=== PATIENT | female | born 1995 | race Caucasian/White ===

== ENCOUNTER 2017-04-24 01:43 | Emergency (ER) ==
[2017-04-24 02:06] VITALS: BP 94/62; TEMP 98.2; BMI 31.1
[2017-04-24] MEDS ORDERED: CLARITIN PO ONE (02:20)
[2017-04-24] MEDS ORDERED: ZANTAC PO STA (02:20)
[2017-04-24] MEDS ORDERED: SOLU-MEDROL 125 MG IM STA (02:20)
--- NOTE | 2017-04-24 02:24 | ED.PDOC ---
General ED Provider: Dr. PRADIP PAYTON Chief Complaint: Allergic Reaction Stated Complaint: Patient is a 21 year old female who comes to the ER with rash on the chest, neck and arms that started yesterday. Does not know what caused it but it is very purritic. Took one bendrayl 6 hours ago but has not helped. Time Seen by Physician: 02:22 Mode of Arrival: Walk-In Information Source: Patient Exam Limitations: No limitations [facility] and Triage Documentation Reviewed and Agree: Yes Skin Complaint Exam - Skin Rash/Itching Complaint/Exam Onset/Duration: 1 day Symptoms Are: Still present Initial Severity: Mild Current Severity: Moderate Location: Chest, neck and arms Potential Exposures: Reports: Unknown Prior Treatment: Benadryl Aggravating: Reports: None Alleviating: Reports: None Associated Signs and Symptoms: Denies: Difficulty breathing, Fever, Chills Skin Findings: Present: Urticaria, Papules Differential Diagnoses: Contact Dermatitis, Urticaria Review of Systems - Review Of Systems Constitutional: Reports: No symptoms Eyes: Reports: No symptoms Ears, Nose, Mouth, Throat: Reports: No symptoms Respiratory: Reports: No symptoms Cardiac: Reports: No symptoms GI: Reports: No symptoms : Reports: No symptoms Musculoskeletal: Reports: No symptoms Skin: Reports: Rash Neurological: Reports: No symptoms Endocrine: Reports: No symptoms Hematologic/Lymphatic: Reports: No symptoms All Other Systems: Reviewed and Negative Past Medical History - Past Medical History Previously Healthy: Yes Endocrine: Reports: None Cardiovascular: Reports: None Respiratory: Reports: None Hematological: Reports: None Gastrointestinal: Reports: None Genitourinary: Reports: None Neuro/Psych: Reports: Anxiety, Depression Musculoskeletal: Reports: None Cancer: Reports: None Last Menstrual Period: PRESENTLY - Surgical History General Surgical History: Reports: None - Family History Family History: Reports: None - Social History Smoking Status: Current every day smoker, Heavy tobacco smoker Hx Substance Use: No Alcohol Screening: Occasionally - Immunizations Tetanus Shot up to Date: Yes Physical Exam - Physical Exam Appearance: Ill-appearing Ill-appearing: Moderate Eyes: AFSHIN, EOMI, Conjunctiva clear ENT: Ears normal, Nose normal, Oropharynx normal Neck: Supple Respiratory: Airway patent, Breath sounds clear, Breath sounds equal, Respirations nonlabored Cardiovascular: RRR, Pulses normal, No rub, No murmur GI/: Soft, Nontender, No masses, Bowel sounds normal, No Organomegaly Musculoskeletal: Normal strength, ROM intact, No edema, No calf tenderness Skin: Warm, Dry, Normal color Neurological: Sensation intact, Motor intact, Reflexes intact, Cranial nerves intact, Alert, Oriented Psychiatric: Affect appropriate, Mood appropriate Critical Care Note - Critical Care Note Total Time (mins): 0 Course - Course Orders, Labs, Meds: Orders Category Date Time Status Loratadine [Claritin] MEDS 04/24/17 02:20 Once 10 mg PO ONCE ONE Methylprednisolone Sod Succ/Pf [Solu-Medrol 125 mg] MEDS 04/24/17 02:20 Stat 125 mg IM ONCE STA Ranitidine HCl [Zantac] MEDS 04/24/17 02:20 Stat 300 mg PO ONCE STA Vital Signs: Temp Pulse Resp BP Pulse Ox 04/24/17 01:44 98.2 F 60 16 94/62 99 Departure - Departure Time of Disposition: 02:40 Disposition: HOME SELF-CARE Discharge Problem: Urticaria Instructions: Urticaria (ED) Condition: Fair Pt referred to PMD for follow-up: Yes Additional Instructions: Take medications as prescribed Follow up with PCP in 3 days Continue home Benadryl Prescriptions: Methylprednisolone [Medrol Dosepak] 4 mg PO DIRECTED #1 pkg Allergies/Adverse Reactions: Allergies No Known Allergies Allergy (Verified 04/24/17 01:55) Home Medications: Ambulatory Orders Buspirone HCl 10 mg PO BID 02/27/17 Sertraline HCl [Zoloft] 200 mg PO DAILY 02/27/17 Methylprednisolone [Medrol Dosepak] 4 mg PO DIRECTED #1 pkg 04/24/17 Disposition Discussed With: Patient, Family
== END 2017-04-24 03:10 | disposition home or self-care (01) ==
LOC: ED 01:43
DX: L50.9 Urticaria, unspecified (principal); F17.210 Nicotine dependence, cigarettes, uncomplicated
CPT/HCPCS: 96372; 99282

== ENCOUNTER 2017-04-30 09:56 | Emergency (ER) ==
[2017-04-30 10:10] VITALS: BP 127/82; TEMP 97.7; BMI 33.0
--- NOTE | 2017-04-30 10:10 | ED.PDOC ---
General ED Provider: Dr. KEENAN COTE JR Chief Complaint: Behavioral Complaint Stated Complaint: has been under a lot of stress since she moved here in december. broke up with boyfriend, hasnt been sleeping, got a job at [employer] and then missed orientation. feels like now she is having a panic attack[End] 97.7 91 20 96 127/82 7/10 tearful congested biting lip concerned she is late for orientation at work Time Seen by Physician: 10:17 Mode of Arrival: Walk-In Information Source: Patient Exam Limitations: No limitations [facility] and Triage Documentation Reviewed and Agree: No Review of Systems - Review Of Systems Constitutional: Reports: Malaise Eyes: Reports: No symptoms Ears, Nose, Mouth, Throat: Reports: No symptoms, Nose discharge Respiratory: Reports: Other Cardiac: Reports: No symptoms GI: Reports: No symptoms : Reports: No symptoms Musculoskeletal: Reports: No symptoms Skin: Reports: No symptoms Neurological: Reports: Anxiety, Emotional problems Endocrine: Reports: No symptoms Hematologic/Lymphatic: Reports: No symptoms All Other Systems: Other Past Medical History - Past Medical History Previously Healthy: Yes Endocrine: Reports: None Cardiovascular: Reports: None Respiratory: Reports: None Hematological: Reports: None Gastrointestinal: Reports: None Genitourinary: Reports: None Neuro/Psych: Reports: Anxiety, Depression Musculoskeletal: Reports: None Cancer: Reports: None Last Menstrual Period: 1 week ago - Surgical History General Surgical History: Reports: None - Family History Family History: Reports: None - Social History Smoking Status: Current every day smoker, Heavy tobacco smoker Hx Substance Use: No Alcohol Screening: Occasionally Physical Exam - Physical Exam Appearance: Well-appearing Pain Distress: Moderate Eyes: AFSHIN, EOMI, Conjunctiva clear ENT: Rhinorrhea Neck: Supple Respiratory: Airway patent, Breath sounds clear, Breath sounds equal, Respirations nonlabored Cardiovascular: RRR, Pulses normal, No rub, No murmur GI/: Soft, Nontender, No masses, Bowel sounds normal, No Organomegaly Musculoskeletal: Normal strength, ROM intact, No edema, No calf tenderness Skin: Warm, Dry, Normal color Neurological: Sensation intact, Motor intact, Reflexes intact, Cranial nerves intact, Alert, Oriented Psychiatric: Anxious Re-Evaluation - Re-Evaluation Time of Re-Evaluation: 12:00 Status: Improved (infomred of pos mj likely for over 30 days after last use ( )) Physician Notification - Case Discussed Physician Notified: LAURO RAMOS [phone] Critical Care Note - Critical Care Note Total Time (mins): 0 Course - Course Orders, Labs, Meds: Lab Review 04/30/17 04/30/17 10:48 10:51 Urine Color Yellow Urine Clarity Clear Urine pH 6.0 Ur Specific Broadbent 1.010 Urine Protein Negative Urine Glucose (UA) Negative Urine Ketones Negative Urine Blood Negative Urine Nitrite Negative Urine Bilirubin Negative Urine Urobilinogen 0.2 Ur Leukocyte Esterase Negative Urine Opiates Screen Negative Ur Oxycodone Screen Negative Urine Methadone Screen Negative Ur Propoxyphene Screen Negative Ur Barbiturates Screen Negative U Tricyclic Antidepress Negative Ur Phencyclidine Scrn Negative Ur Amphetamine Screen Negative U Methamphetamines Scrn Negative U Benzodiazepines Scrn Positive Urine Cocaine Screen Negative U Cannabinoids Screen Positive Orders Category Date Time Status DRUG SCREEN (RAPID FOR ED) [DRUG SCREEN, URINE, RAPID] LAB 04/30/17 10:51 Completed Stat UA [URINALYSIS C & S IF INDICATED] Stat LAB 04/30/17 10:48 Completed Clonazepam [Klonopin] MEDS 04/30/17 10:11 Discontinued 1 mg PO ONCE STA Loratadine [Claritin] MEDS 05/01/17 09:00 Discontinued 10 mg PO DAILY Loratadine [Claritin] MEDS 04/30/17 10:51 Discontinued 10 mg PO ONCE STA Medications Discontinued Medications Generic Name Dose Route Start Last Admin Trade Name Freq PRN Reason Stop Dose Admin Clonazepam 1 mg 04/30/17 10:11 04/30/17 10:19 Klonopin PO 04/30/17 10:12 1 mg ONCE STA Administration Loratadine 10 mg 05/01/17 09:00 Claritin PO DAILY JORJE Loratadine 10 mg 04/30/17 10:51 Claritin PO 04/30/17 10:52 ONCE STA Vital Signs: Temp Pulse Resp BP Pulse Ox 04/30/17 09:57 97.7 F 91 H 20 127/82 96 Departure - Departure Time of Disposition: 11:54 Disposition: HOME SELF-CARE Discharge Problem: Anxiety Instructions: Generalized Anxiety Disorder (ED) Condition: Good Pt referred to PMD for follow-up: Yes Additional Instructions: FOLLOW UP WITH PMD DISCUSS SYMPTOMS FOLLOW UP WITH [employer] [facility] MEDICATION MAY CAUSE DROWSINESS OFF WORK TODAY FULL DUTY IN 4-6 HOURS DO NOT OPERATE MACHINERY WITH MEDICATION (MAY DRIVE OR OPERATE MACHINERY WITH CLARITIN IF NO DROWSINESS [facility] NUMBER [phone] Prescriptions: Hydroxyzine HCl [Atarax] 25 mg PO QID PRN #30 tablet PRN Reason: Allergy Symptoms Loratadine [Claritin] 10 mg PO DAILY PRN #30 tablet PRN Reason: Allergy Symptoms Allergies/Adverse Reactions: Allergies No Known Allergies Allergy (Verified 04/30/17 10:03) Home Medications: Ambulatory Orders Buspirone HCl 10 mg PO BID 02/27/17 Sertraline HCl [Zoloft] 200 mg PO DAILY 02/27/17 Hydroxyzine HCl [Atarax] 25 mg PO QID PRN #30 tablet 04/30/17 Loratadine [Claritin] 10 mg PO DAILY PRN #30 tablet 04/30/17
[2017-04-30] MEDS ORDERED: KLONOPIN PO STA (10:11)
[2017-04-30] MEDS ORDERED: CLARITIN PO STA (10:51)
[2017-04-30 10:54] LABS: BILIRUBIN,URINE Negative (NEGATIVE); KETONES,URINE Negative (NEGATIVE); LEUKOCYTE ESTERASE ,URINE Negative (NEGATIVE); NITRITE,URINE Negative (NEGATIVE); PROTEIN,URINE Negative (NEGATIVE); URINE, BLOOD Negative (NEGATIVE)
[2017-04-30 10:55] LABS: ADD URINE MICROSCOPIC NO
[2017-04-30 11:05] LABS: COCAIN SCREEN,URINE NEGATIVE (NEGATIVE)
[2017-05-01] MEDS ORDERED: CLARITIN PO SCH (09:00)
== END 2017-04-30 12:10 | disposition home or self-care (01) ==
LOC: ED 09:56
DX: F41.1 Generalized anxiety disorder (principal); F17.210 Nicotine dependence, cigarettes, uncomplicated
CPT/HCPCS: 80306; 81001; 99283

== ENCOUNTER 2018-06-23 12:52 | Outpatient (CLI) | END 2018-06-23 12:53 | disposition home or self-care (01) | LOC: LAB 12:52 | PROVIDERS: ATTEND Nurse Practitioner Family | DX: R10.9 Unspecified abdominal pain (principal); R11.2 Nausea with vomiting, unspecified | CPT/HCPCS: 36415; 80053; 82150; 83690; 84703; 85025 ==

== ENCOUNTER 2018-06-25 09:28 | Outpatient (CLI) ==
--- NOTE | 2018-06-25 10:22 | US ---
EXAM: Right upper quadrant abdominal ultrasound. History: Right upper quadrant abdominal pain and diarrhea. Technique: Multiple sonographic images through the abdomen were obtained. Color duplex Doppler was used to interrogate vascular flow. Findings: The liver is not enlarged according to the sonographic measurement given. No focal liver lesions ca ntified sonographically. There is antegrade flow within the main portal vein. The liver is slightly echogenic compared to the adjacent right renal cortex. No abdominal ascites. Visualized pancreas d emonstrates no gross abnormality. No shadowing gallstones. Gallbladder wall is not thickened. Limi anna marie visualization of the right kidney demonstrates no evidence for hydronephrosis. Impression: 1. No acute sonographic findings. 2. Probable mild fatty liver. Correlate with liver function tests
== END 2018-06-25 09:29 | disposition home or self-care (01) ==
LOC: RAD 09:28
PROVIDERS: ATTEND Nurse Practitioner Family
DX: R10.9 Unspecified abdominal pain (principal); R11.2 Nausea with vomiting, unspecified